=== PATIENT | female | born 1965 | race African-American/Black ===

== ENCOUNTER → 2017-06-09 | Outpatient (CLI) | payer MEDICAID, OTHER, SELFPAY ==
--- NOTE | 2017-06-09 10:22 | REP ---
BILATERAL MAMMOGRAM, BASELINE STUDY: Bilateral mammography performed in the MLO and CC projections with additional ML view of the right breast performed. Moderate fibroglandular tissue is scattered bilaterally. There is a round nodule in the upper outer quadrant of the right breast which appears fairly smoothly marginated and well defined measuring approximately 1.4 cm in diameter. Medially on the right CC view there are a few tiny calcifications which are probably projecting superiorly on the MLO and ML views. No other mass or clustered microcalcifications are seen. IMPRESSION: ACR 0 incomplete. Round 1.4 cm nodule upper outer quadrant right breast for which spot compression views and ultrasound are recommended. Possible clustered microcalcifications medial upper right breast for which magnification views were recommended. BI-RADS/ACR category 0 mammogram, incomplete. Additional imaging and/or prior images are needed before a final assessment can be assigned. This mammogram was interpreted with the aid of an FDA-approved computer-aided detection system. The patient states that she/he has not had a clinical breast exam in over a year. The patient letter being requested is M0. Signed by Hans Louie MD 06/10/2017 05:48 P
== END ==
LOC: M RAD 08:26
PROVIDERS: ATTEND Nurse Practitioner Women's Health
DX: R92.2 Inconclusive mammogram (principal); N63 Unspecified lump in breast

== ENCOUNTER → 2017-10-28 | Outpatient (CLI) | payer MEDICAID ==
--- NOTE | 2017-10-28 14:00 | REP ---
DIAGNOSTIC MAMMOGRAM RIGHT BREAST WITH RIGHT BREAST ULTRASOUND: Diagnostic mammogram performed of the right breast with multiple magnification and compression views obtained. The tiny calcifications in the upper right breast appear to represent dermal calcifications. There is persistence of a 1.4 cm nodule in the upper outer quadrant of the right breast. The margins are smooth and well defined. Real-time sonographic evaluation of the upper outer quadrant of the right breast demonstrates two solid appearing nodules. There is a nodule at 6 o'clock about 5.7 cm from the nipple which measures 1.1 cm in diameter. Another nodule closer to the nipple may contain tiny calcifications, measuring 1.3 x 0.7 x 1.3 cm. Ultrasound guided biopsy of both of these nodules is recommended. IMPRESSION: ACR 4 suspicious. Dermal calcifications identified at 6 o'clock. Round nodule confirmed in the upper outer quadrant of the right breast. By ultrasound, two solid nodules are seen in the upper outer quadrant as discussed in detail above. Recommend ultrasound guided biopsy of both of these nodules. BI-RADS/ACR category 4 mammogram. Suspicious abnormality - biopsy should be considered. Usually requires biopsy. This mammogram was interpreted with the aid of an FDA-approved computer-aided detection system. A. Negative x-ray reports should not delay biopsy if a dominant or clinically suspicious mass is present. B. Four to eight percent of cancers are not identified by x-ray. C. Adenosis and dense breasts may obscure an underlying neoplasm. The patient letter being requested is M4. Signed by Hans Louie MD 10/28/2017 03:15 P
== END ==
LOC: M RAD 11:07
PROVIDERS: ATTEND Nurse Practitioner Women's Health
DX: R92.8 Other abnormal and inconclusive findings on diagnostic imaging of breast (principal)
CPT/HCPCS: 76642; G0206

== ENCOUNTER 2017-11-06 15:12 | Emergency (ER) | payer OTHER ==
[~2017-11-06] VITALS: Ht 172.7 cm; Wt 85.4 kg
[2017-11-06 15:13] VITALS: BP 127/66
[2017-11-06] MEDS ORDERED: IBUP-1022 PO (15:59)
--- NOTE | 2017-11-06 16:08 | REP ---
Clinical: Trauma. Technique: AP, lateral, bilateral oblique views of the right ankle. Findings: Anterolateral soft tissue swelling consist with inversion injury. No acute fracture or dislocation. Joint spaces and ankle mortise are intact. Impression: Soft-tissue swelling. No acute fracture or dislocation. Signed by Tavon Cline MD 11/06/2017 03:59 P
== END 2017-11-06 16:24 | disposition home or self-care (01) ==
LOC: M ED 15:12
DX: S93.401A Sprain of unspecified ligament of right ankle, initial encounter (principal); W01.198A Fall on same level from slipping, tripping and stumbling with subsequent striking against other object, initial encounter; Y92.099 Unspecified place in other non-institutional residence as the place of occurrence of the external cause; Y93.01 Activity, walking, marching and hiking; Y99.9 Unspecified external cause status

== ENCOUNTER 2018-01-26 09:49 | Day surgery (SDC) | payer OTHER ==
[2018-01-26] MEDS: NS 1,000 ML IV (09:58)
[2018-01-26] MEDS ORDERED: PROPOFOL 200 MG/20 ML VIAL As Ordered ×2 (11:33→11:42)
== END 2018-01-26 12:45 | disposition home or self-care (01) ==
LOC: M OPP 09:49
DX: Z12.11 Encounter for screening for malignant neoplasm of colon (principal)
CPT/HCPCS: G0121